=== PATIENT | female | born 1985 | race African-American/Black ===

== ENCOUNTER 2021-04-22 04:22 | Emergency (ER) | payer OTHER ==
[~2021-04-22] VITALS: Ht 167.6 cm; Wt 61.4 kg
[~2021-04-22 04:22] MED LIST: IBUP-1673 PO
--- NOTE | 2021-04-22 04:27 | PHYS DOC ---
Past History Past Medical History: No Pertinent History Past Surgical History: No Surgical History Smoking: Cigarettes, Greater than 1 pack/day Alcohol Use: Rarely Drug Use: None General Adult HPI: HPI: "... I stepped off the curb.. and hurt my ankle tonight.. " Patient is a 35 year old female who presents with above hx and complaints injury to Lt. ankle. Patient has obvious swelling of left ankle. Pain with inversion. No upper leg tenderness. Distal neurovascular is equal to right leg and foot. Marked pain over lateral malleolus. Does have some ligamental laxity on anterior draw. No other injury reported. Has twisted ankle before. No history of travel. No history of significant ill contacts. Patient does not plan to get COVID vaccination. The pt. follows with Dr. Neal. Review of Systems: Review of Systems: Constitutional: Denies fever or chills Eyes: Denies change in visual acuity HENT: Denies nasal congestion or sore throat Respiratory: Denies cough or shortness of breath Cardiovascular: Denies chest pain or edema GI: Denies abdominal pain, nausea, vomiting, bloody stools or diarrhea : Denies dysuria Musculoskeletal: Complains of left ankle and foot injury Integument: Denies rash Neurologic: Denies headache, focal weakness or sensory changes Endocrine: Denies polyuria or polydipsia Lymphatic: Denies swollen glands Psychiatric: Denies depression or anxiety Family History: Family History: Noncontributory to presentation Current Medications: Current Meds: See nursing for home meds Allergies: Allergies: Allergies Coded Allergies Type Severity Reaction Last Updated Verified acetaminophen Allergy Severe Swelling 12/17/13 Yes Physical Exam: PE: Constitutional: Well developed, well nourished, moderate acute distress, intoxicated in appearance appearance. [] HENT: Normocephalic, atraumatic, bilateral external ears normal, oropharynx moist, no oral exudates, nose normal. Lips studs Eyes: PERRLA, EOMI, conjunctiva normal, no discharge. [] Neck: Normal range of motion, no tenderness, supple, no stridor. [] Cardiovascular:Heart rate regular rhythm, no murmur [] Lungs & Thorax: Bilateral breath sounds equal apex with scattered wheezes auscultation [] Abdomen: Bowel sounds normal, soft, no tenderness, no masses, no pulsatile masses. Old surgical scars. Skin: Warm, dry, no erythema, no rash. [] Back: No tenderness, no CVA tenderness. [] Extremities: No tenderness, no cyanosis, no clubbing, ROM intact, no edema. Except findings and left ankle and foot on HPI Neurologic: Alert and oriented X 3, moves all extremities on request, has distal sensory, no focal deficits noted. [] Psychologic: Affect anxious, judgement normal, mood normal. [] EKG: EKG: [] Radiology/Procedures: Radiology/Procedures: [][place] [id number] IMAGING REPORT Signed PATIENT: JULITO PROCTOR ACCOUNT: [id number] : 1985 LOCATION: ER AGE: 35 SEX: F EXAM STATUS: PRE ER ORD. PHYSICIAN: SCOUT RIDLEY MD REASON: twisted PROCEDURE: FOOT LEFT 3V EXAMINATION: XR EXAM OF ANKLE_LEFT 3V, XR FOOT_LEFT 3 VIEWS CLINICAL HISTORY: Left foot and ankle pain, twisted ankle TECHNIQUE: XR EXAM OF ANKLE_LEFT 3V, XR FOOT_LEFT 3 VIEWS COMPARISON: None FINDINGS/ IMPRESSION: Transverse fracture through the lateral malleolus with mild apex posterior angulation. Joint spaces and alignment maintained in the foot and ankle. Soft tissue swelling along the lateral ankle. Electronically signed by: Seven Mary DO (04/22/2021 4:59 AM) [facility] DICTATED AND SIGNED BY: SEVEN MARY DO DATE: 04/22/21 0457 CC: SCOUT RIDLEY MD; MAGGY NEAL MD ~MTH0 0 Heart Score: C/O Chest Pain: N/A Risk Factors: Risk Factors: DM, Current or recent (<one month) smoker, HTN, HLP, family history of CAD, obesity. Risk Scores: Score 0 - 3: 2.5% MACE over next 6 weeks - Discharge Home Score 4 - 6: 20.3% MACE over next 6 weeks - Admit for Clinical Observation Score 7 - 10: 72.7% MACE over next 6 weeks - Early Invasive Strategies Course & Med Decision Making: Course & Med Decision Making Pertinent Labs and Imaging studies reviewed. (See chart for details) Patient to elevate left ankle above heart. Patient take ibuprofen for pain. Patient wear splint. Ice packs as needed. Patient use crutches. Patient follow-up with Ortho of her choice. Consider re-x-ray in 2 weeks. May also follow-up with [facility] Orth[facility]. Distal neurovascular intact after application of splint. Patient take only ibuprofen for pain. Pt.to avoid acetaminophen if she has allergic symptoms and intolerance to it use. Impression: 1. Sprain Lt. ankle 2. Fx distal fibula Lt. ankle [] Dragon Disclaimer: Dragon Disclaimer: This electronic medical record was generated, in whole or in part, using a voice recognition dictation system. Departure Departure: Referrals: MAGGY NEAL MD (PCP) Juma Disclaimer This chart was dictated in whole or in part using Voice Recognition software in a busy, high-work load, and often noisy Emergency Department environment. It may contain unintended and wholly unrecognized errors or omissions. Dragon Disclaimer This chart was dictated in whole or in part using Voice Recognition software in a busy, high-work load, and often noisy Emergency Department environment. It may contain unintended and wholly unrecognized errors or omissions. SCOUT RIDLEY MD Apr 22, 2021 04:27
[2021-04-22 04:35] VITALS: BP 122/74
[2021-04-22] MEDS ORDERED: HYDROcodon/IBUPROFEN 7.5/200MG 1 TAB TABLET ONE (04:39)
[2021-04-22] MEDS ORDERED: HYDROcodon/IBUPROFEN 7.5/200MG 1 TAB TABLET PO ONE (04:45)
--- NOTE | 2021-04-22 05:02 | RAD ---
EXAMINATION: XR EXAM OF ANKLE_LEFT 3V, XR FOOT_LEFT 3 VIEWS CLINICAL HISTORY: Left foot and ankle pain, twisted ankle TECHNIQUE: XR EXAM OF ANKLE_LEFT 3V, XR FOOT_LEFT 3 VIEWS COMPARISON: None FINDINGS/ IMPRESSION: Transverse fracture through the lateral malleolus with mild apex posterior angulation. Joint spaces a nd alignment maintained in the foot and ankle. Soft tissue swelling along the lateral ankle. Electronically signed by: Seven Limon DO (04/22/2021 4:59 AM) [facility]
== END 2021-04-22 05:15 | disposition home or self-care (01) ==
LOC: ER 04:22
DX: S82.832A Other fracture of upper and lower end of left fibula, initial encounter for closed fracture (principal); S93.402A Sprain of unspecified ligament of left ankle, initial encounter; F17.210 Nicotine dependence, cigarettes, uncomplicated; X50.1XXA Overexertion from prolonged static or awkward postures, initial encounter; Y93.89 Activity, other specified; Y92.89 Other specified places as the place of occurrence of the external cause; Y99.8 Other external cause status
CPT/HCPCS: 29515; 73610; 73630; 99284-25

== ENCOUNTER 2021-05-20 05:04 | Emergency (ER) | payer OTHER ==
[~2021-05-20] VITALS: Ht 167.6 cm; Wt 75.0 kg
--- NOTE | 2021-05-20 05:09 | PHYS DOC ---
Past History Past Medical History: No Pertinent History Past Surgical History: , Tubal ligation Smoking: Cigarettes, Greater than 1 pack/day Alcohol Use: Rarely Drug Use: None Adult General HPI HPI Patient is a 35-year-old female who presents with ankle pain, 7 out of 10, dull and achy in nature. Patient was in the emergency department on 04/22 of this year with a transverse fracture through the lateral malleolus. States she did not follow-up with orthopedic surgery and took off her splint because she did not like wearing it. Review of Systems Review of Systems Review of systems otherwise unremarkable except noted in HPI Allergies Allergies Allergies Coded Allergies Type Severity Reaction Last Updated Verified acetaminophen Allergy Severe Swelling 12/17/13 Yes Physical Exam Physical Exam Constitutional: Well developed, well nourished, no acute distress, non-toxic appearance. [] HENT: Normocephalic, atraumatic, Skin: Warm, dry, no erythema, no rash. [] Back: No tenderness, Extremities: Tenderness around the lateral malleolus with some mild swelling but no obvious deformities or bruising, neurovascular exam intact Neurologic: Alert and oriented X 3, normal motor function, normal sensory function, no focal deficits noted. [] Psychologic: Affect normal, judgement normal, mood normal. [] EKG EKG [] Radiology/Procedures Radiology/Procedures [] Heart Score C/O Chest Pain: No Risk Factors: Risk Factors: DM, Current or recent (<one month) smoker, HTN, HLP, family history of CAD, obesity. Risk Scores: Risk Factors: DM, Current or recent (<one month) smoker, HTN, HLP, family history of CAD, obesity. Course & Med Decision Making Course & Med Decision Making Patient is a 35-year-old female presents with ankle pain Vital signs not concerning. Physical exam noted above. Given pain medicine and ice pack. Imaging from 4 weeks ago showed a transverse fracture through the lateral malleolus. Patient states she never followed up with orthopedic surgery and took off her splint because she did not like wearing it. A new short leg splint placed. Patient given crutches. Advised to use crutches and not bear weight until she follows up with orthopedic surgery. Given contact information for [facility] orthopedic group. Discussed pain management at home and given pain medicine for home. Gave return precautions to the ED. Patient grateful, verbalized understanding agree with plan of discharge. [] Dragon Disclaimer Dragon Disclaimer This electronic medical record was generated, in whole or in part, using a voice recognition dictation system. Departure Departure: Impression: Primary Impression: Fx lateral malleolus-closed Disposition: HOME / SELF CARE / HOMELESS Condition: GOOD Referrals: MAGGY HAWKINS MD (PCP) Patient Instructions: Ankle Fracture, RICE - Routine Care for Injuries Additional Instructions: Thank you for coming into the emergency department tonight and allowing us to take care of you. Please read the attached information carefully to go back over some of the things we discussed. Please continue a Tylenol, ibuprofen and ice regimen as needed. Please follow-up with your primary care physician as soon as you can to update on your ED visit and set up a follow-up. Please come back to the ED with new or concerning symptoms as discussed. It is very important that you keep your splint on and use your crutches at all times and do not put weight on this ankle until you follow-up with the orthopedic surgeons at [facility]. Their number is [phone]. Please call them first thing Friday morning to set up an immediate follow-up visit to discuss further evaluation and treatment. Scripts Oxycodone HCl (Roxicodone) 5 Mg Tablet 5 MG PO TID for ankle fracture for 3 Days, #9 TAB Prov: BRADY PERRY MD 05/20/21 BRADY PERRY MD May 20, 2021 05:09
[2021-05-20 05:13] VITALS: BP 98/61
[2021-05-20] MEDS ORDERED: IBUPROFEN 600 MG TABLET. PO ONE (05:15)
[2021-05-20] MEDS ORDERED: ACETAMINOPHEN 500 MG TABLET PO ONE (05:15)
[2021-05-20] MEDS ORDERED: OXYC5TAB88 PO (05:23)
[2021-05-20] MEDS ORDERED: oxyCODONE IR 5 MG TABLET PO PRN (05:30)
--- NOTE | 2021-05-20 06:08 | RAD ---
Three-view left ankle HISTORY: Pain after fall AP lateral oblique views There is a horizontal minimally displaced fracture through the lateral malleolus below the level plaf ond. The tibiotalar relationship is normal. The remaining visualized osseous structures appear normal . IMPRESSION: Acute minimally displaced fracture of the lateral malleolus. Electronically signed by: Maik Morgan III, MD (05/20/2021 6:05 AM) [facility]
== END 2021-05-20 06:09 | disposition home or self-care (01) ==
LOC: ER 05:04
DX: S82.62XD Displaced fracture of lateral malleolus of left fibula, subsequent encounter for closed fracture with routine healing (principal); F17.210 Nicotine dependence, cigarettes, uncomplicated; Z88.6 Allergy status to analgesic agent; X58.XXXD Exposure to other specified factors, subsequent encounter
CPT/HCPCS: 29515; 73610; 99283